=== PATIENT | male | born 1945 | race Caucasian/White ===

== ENCOUNTER 2018-10-08 07:25 | Emergency (ER) | payer MEDICARE ==
[~2018-10-08] VITALS: Ht 177.8 cm; Wt 94.0 kg
[~2018-10-08 07:25] MED LIST: ATOR20TA PO; CHOL400C8 PO; FLAX100031 PO; LISI1TAB11 PO; MULT-1085 PO; MULT-1172
[2018-10-08] MEDS ORDERED: normal saline 1000ML IV soln IVB ONE ×2 (07:40→08:20)
[2018-10-08 07:52] LABS: BASOPHILS % (AUTO) 0.1 % (0-1); EOSINOPHILS # (AUTO) 0.2 X10'3 (0-0.9); EOSINOPHILS % (AUTO) 2.1 % (0-6); HEMATOCRIT 40.8 % (42.0-52.0); HEMOGLOBIN 13.9 g/dl (14.0-17.9); LYMPHOCYTES # (AUTO) 1.9 X10'3 (1.1-4.8); LYMPHOCYTES % (AUTO) 15.8 % (21-51); MEAN CORPUSCULAR HEMOGLOBIN 30.4 PG (27.0-31.0); MEAN CORPUSCULAR HGB CONC 34.2 g/dL (33.0-36.5); MEAN CORPUSCULAR VOLUME 89.1 FL (78-98); MONOCYTES # (AUTO) 0.8 X10'3 (0-0.9); MONOCYTES % (AUTO) 6.6 % (2-12); NEUTROPHILS # (AUTO) 8.8 X10'3 (1.8-7.7); NEUTROPHILS % (AUTO) 75.4 % (42-75); PLATELET COUNT 313 X10'3 (140-440); RED BLOOD COUNT 4.58 X10'6 (4.70-6.10); RED CELL DISTRIBUTION WIDTH 13.3 % (11.5-14.5); WHITE BLOOD COUNT 11.7 X10'3 (4.5-11.0)
[2018-10-08 08:06] LABS: PARTIAL THROMBOPLASTIN TIME 23 SECONDS (22-32); PROTHROMBIN TIME 10.5 SECONDS (9.0-12.0)
[2018-10-08 08:07] LABS: ALANINE AMINOTRANSFERASE 30 U/L (12-78); ALBUMIN 3.5 G/DL (3.4-5.0); ALKALINE PHOSPHATASE 115 IU/L (46-116); ANION GAP 10 (8-16); ASPARTATE AMINO TRANSFERASE 23 U/L (10-37); BILIRUBIN,TOTAL 0.5 MG/DL (0.1-1.0); BLOOD UREA NITROGEN 17 MG/DL (7-18); BUN/CREATININE RATIO 14.2 (5.4-32.0); CALCIUM 9.2 MG/DL (8.5-10.1); CHLORIDE 101 MMOL/L (99-107); GLUCOSE 136 MG/DL (70-104); POTASSIUM 4.4 MMOL/L (3.5-5.1); SODIUM 137 MMOL/L (135-145); TOTAL CARBON DIOXIDE 25.6 MMOL/L (24-32); TOTAL PROTEIN 7.1 G/DL (6.4-8.2); eGFR 60 ML/MIN
[2018-10-08] MEDS ORDERED: dexamethasone sod phosphate 10mg/ml inj IV STA (09:14)
[2018-10-08] MEDS ORDERED: calcium gluconate inj. 1 GM in normal saline 100ml IV soln 90 ML IV ONE (09:15)
[2018-10-08 09:29] LABS: CLARITY,URINE CLEAR (Clear); COLOR,URINE YELLOW (Yellow); GLUCOSE, URINE NEGATIVE (Neg); KETONES,URINE NEGATIVE (Neg); LEUKOCYTE ESTERASE ,URINE NEGATIVE (Neg); NITRITES, URINE NEGATIVE (Neg); OCCULT BLOOD,URINE NEGATIVE (Neg); PH,URINE 6.5 (4.8-8.0); PROTEIN,URINE NEGATIVE (Neg); UROBILINOGEN,URINE 0.2 E.U/dL (0.2-1.0)
[2018-10-08 09:31] LABS: UA COLLECTION TYPE CLN CATCH MIDSTREAM
[2018-10-08] MEDS ORDERED: iohexol 350MG/ML 100ml bottle IV ONE (09:47)
[2018-10-08 11:00] VITALS: BP 111/66
[2018-10-08] MEDS ORDERED: ASPI-1053 PO (11:00)
== END 2018-10-08 11:49 | disposition home or self-care (01) ==
LOC: ER 07:26
DX: R91.8 Other nonspecific abnormal finding of lung field (principal); R55 Syncope and collapse; R42 Dizziness and giddiness; I95.89 Other hypotension; I10 Essential (primary) hypertension; F17.210 Nicotine dependence, cigarettes, uncomplicated; Z79.82 Long term (current) use of aspirin; Z79.899 Other long term (current) drug therapy
CPT/HCPCS: 36415; 71045; 71275; 80053; 81003; 83880; 84145; 84443; 84484; 85025; 85610; 85730; 93005; 96361; 96365; 96375; 99285; J0610; J1100; J7030; Q9967; 99284